=== PATIENT | female | born 1995 | race African-American/Black ===

== ENCOUNTER 2018-06-17 12:04 | Inpatient (IN) ==
[2018-06-17] MEDS ORDERED: SODIUM CHLORIDE 0.9% 1000ML 2,000 ML IV SCH (12:45)
[2018-06-17 12:48] LABS: Basophils # (auto) 0.03 K/uL (0-0.2); Basophils % (auto) 0.2 %; Eosinophils # (auto) 0.03 K/uL (0-0.5); Eosinophils % (auto) 0.2 %; Hemoglobin 12.7 g/dL (12.0-16.0); Immature Granulocytes # (auto) 0.08 K/uL (0.00-0.02); Immature Granulocytes % (auto) 0.5 %; Lymphocytes # (auto) 1.71 K/uL (1.2-3.4); Lymphocytes % (auto) 9.9 %; Mean Corpuscular Hgb Conc 33.4 g/dL (32-36); Mean Corpuscular Volume 83.9 fL (80-100); Monocytes # (auto) 2.52 K/uL (0.11-0.59); Monocytes % (auto) 14.6 %; Neutrophils % (auto) 74.6 %; Platelet Count 271 K/uL (130-400); RDW Standard Deviation 43.1 fL (36.4-46.3); Red Blood Count 4.53 M/uL (4.2-5.4); White Blood Count 17.27 K/uL (4.8-10.8)
[2018-06-17 12:59] LABS: INR 1.1 (0.9-1.1); Prothrombin Time 11.4 Seconds (9.0-12.0)
[2018-06-17 13:02] LABS: iSTAT Creatinine 0.7 mg/dl (0.6-1.3); iSTAT Hemoglobin 13.3 g/dl (12.0-16.0); iSTAT Ionized Calcium 1.11 mmol/l (1.12-1.32)
[2018-06-17 13:07] LABS: Alanine Aminotransferase 29 U/L (12-78); Albumin Level 3.4 gm/dl (3.4-5.0); Aspartate Aminotransferase 24 U/L (15-37); BUN Creatinine Ratio 7.8 (10-20); Blood Urea Nitrogen 6 mg/dl (7-18); Calcium 9.1 mg/dl (8.5-10.1); Carbon Dioxide 23 mmol/L (21-32); Chloride 104 mmol/L (98-107); Creatinine Clr Calc Pharmacy 129.2 ml/min; Est GFR (African American) 123.2; Est GFR (Non-African American) 106.3; Glucose 99 mg/dl (70-99); Potassium 2.9 mmol/L (3.5-5.1); Sodium 138 mmol/L (136-145)
[2018-06-17 13:12] LABS: Albumin Globulin Ratio 0.6 (0.9-2); Alkaline Phosphatase 74 U/L (45-117); Bilirubin,Total 0.5 mg/dl (0.2-1); Globulin 5.7 gm/dl (2.5-4.0); Total Protein 9.1 gm/dl (6.4-8.2); Troponin I < 0.015 ng/ml (0-0.045)
[2018-06-17] MEDS ORDERED: IOVERSOL 100ml IV PRN (13:15)
[2018-06-17] MEDS ORDERED: PIPERACILL/TAZOBAC CONSULT ACTIVE PRN (13:18)
[2018-06-17] MEDS ORDERED: PIPERACILLIN/TAZOBACTAM 3.375 GM/115 ML BAG IV STA (13:18)
--- NOTE | 2018-06-17 13:31 | CT Scan Report ---
CT OF THE CHEST WITH IV CONTRAST CLINICAL HISTORY: Chest mass. Fevers. COMPARISON STUDY: No previous studies for comparison. TECHNIQUE: Following the IV administration of 93 mL of Optiray-320, CT of the thorax was performed f rom the thoracic inlet to the lung bases. Images are reviewed in the axial, sagittal, and coronal arsh lonnie. IV contrast was administered without complication. A dose lowering technique was utilized adher ing to the principles of ALARA. CT DOSE: 368.29 mGycm FINDINGS: Thyroid: Imaged portions of the thyroid gland are normal in appearance. Thoracic aorta: The thoracic aorta is normal in course and caliber, noting standard 3-vessel arch katelin steph. No aneurysm or dissection is seen. Pulmonary vasculature: The pulmonary trunk is normal in caliber. There are no central filling defects identified to suggest pulmonary embolus. Note that this examination was not protocoled for the evalu ation of pulmonary emboli. HEART: The heart is normal in size and configuration, without pericardial effusion. Lungs and pleural spaces: There are no pleural effusions. There is a 8 cm left upper lobe pulmonary m ass containing multiple air-fluid levels. Given the patient's age and history of fever, this likely r epresents a necrotic pneumonia, with multifocal abscesses.. Atypical organisms must be considered in the differential given the appearance of this lesion. Pulmonary consultation for consideration of bro nchoscopy should be considered. Mediastinum: There is no mediastinal lymphadenopathy. Mariluz: There is left hilar adenopathy. Axilla: There is no evidence of pathologic axillary lymphadenopathy Upper abdomen: Partially visualized upper abdominal viscera is within normal limits. Skeletal structures: There are no lytic or blastic osseous lesions. IMPRESSION: 1. 8 cm left upper lobe pulmonary mass containing multiple air-fluid levels. There is associated left hilar adenopathy. Given the patient's age and history of fever, this likely represents a necrotic pn eumonia. Atypical organisms must be considered in the differential given the appearance of this lesio n. Pulmonary consultation for consideration of bronchoscopy should be considered. Electronically signed by: Marshall Palomo M.D. 06/17/2018 1:29 PM
[2018-06-17] MEDS ORDERED: VANCOMYCIN HCL 2,000 MG in SODIUM CHLORIDE 0.9% 500 ML IV ONE (13:44)
[2018-06-17] MEDS ORDERED: VANCOMYCIN CONSULT ACTIVE PRN (13:44)
--- NOTE | 2018-06-17 14:29 | History & Physical Report ---
Date of Service June 17, 2018 History of Present Illness Primary Care Provider: [facility] Allergies Allergy/AdvReac Type Severity Reaction Status Date / Time No Known Allergies Allergy Unverified 06/17/18 13:01 Home Medications Home Medications Medication Instructions Recorded Confirmed Type No Known Home Medications 06/17/18 06/17/18 History Past Med/Surg History Medical History No chronic diseases present Social History current occupational status: student Feels Safe at Home: Yes Smoking Status: Never smoker Physical Exam Vital Signs (Past 24 Hours): Last Vital Signs Temp 37.7 C H 06/17/18 12:22 Pulse 111 H 06/17/18 14:00 Resp 17 06/17/18 14:00 BP 135/82 06/17/18 14:00 Pulse Ox 97 06/17/18 14:00 Results & Data Diagnostic Findings CT chest . 8 cm left upper lobe pulmonary mass containing multiple air-fluid levels. There is associated left hilar adenopathy. Given the patient's age and history of fever, this likely represents a necrotic pneumonia. Atypical organisms must be considered in the differential given the appearance of this lesion. Pulmonary consultation for consideration of bronchoscopy should be considered.
--- NOTE | 2018-06-17 14:56 | History & Physical Report ---
Date of Service June 17, 2018 Assessment & Plan (1) Sepsis: (2) Pulmonary abscess: - Admit to med surg with tele - Isolation precautions, airborne - CT chest reviewed showing 8cm cavitary lesion with multiple air fluid levels in the MONIE close to multiple great vessels - concerning for infection vs inflammation vs malignancy. At this time cannot r/o TB. - Pulmonology consulted- Discussed with Dr. Butler at bedside - plan for bronch tomorrow morning and obtain cultures/pathology. NPO after midnight. More discussion regarding if surgical resection will be needed after bronchoscopy performed due to location of the lesion. - Check sputum culture, AFB, quantiferon gold for TB - Leukocytosis 17K upon admission, trend cbc - continue zosyn IV - pt has developed mild hives/itching from vancomycin so will stop this medication now and check MRSA swab to determine if needs for MRSA coverage. Vanc added to allergies. - Tmax 37.7, tylenol prn - Sats are adequate on room air, no respiratory distress. (3) DVT prophylaxis: - teds, ambulatory about the room. (4) Acute hypokalemia: - 2.9 upon admission, replaced - likley due to one episode of vomitting this morning. - Follow am prp History of Present Illness Primary Care Provider: [facility] This is a 23 yo F from [facility], with no significant PMHx who presents with acute onset of chills, fever, and worsening shortness of breath which has progressively worsened since Thursday. She reports some slight lightheadedness and dizziness. This morning she vomitted x 1 at 5:30a. She presents after having a routine CXR at [facility] where a cavitary lesion was found and was sent to the ER. 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 She reports lives in her own dorm. She denies sick contacts or recent travel. Pt found with leukocytosis 17K, and CT of the chest reveals a 8 cm cavitary lesions with multiple air fluid levels. Allergies Allergy/AdvReac Type Severity Reaction Status Date / Time vancomycin Allergy Mild Hives Unverified 06/17/18 15:16 Home Medications Home Medications Medication Instructions Recorded Confirmed Type No Known Home Medications 06/17/18 06/17/18 History Past Med/Surg History Medical History No chronic diseases present Social History current occupational status: student Feels Safe at Home: Yes Smoking Status: Never smoker Review of Systems Constitutional: No fever, sweats or chills Eyes: No diplopia, no worsening or blurred vision ENT: normal hearing, no trouble swallowing Respiratory: + dry cough, no sputum, + dyspnea on exertion Cardiovascular: No chest pain, tightness or palpitations Abdomen: No pain, nausea, vomiting, diarrhea or constipation Musculoskeletal: No joint pain, calf pain, swelling Neurologic: + generalized weakness, no numbness/tingling, or balance problems Psychiatric: No anxiety or depression Skin: No rash or itch Physical Exam Vital Signs (Past 24 Hours): Last Vital Signs Temp 37.7 C H 06/17/18 12:22 Pulse 111 H 06/17/18 14:00 Resp 17 06/17/18 14:00 BP 135/82 06/17/18 14:00 Pulse Ox 97 06/17/18 14:00 Physical Exam: General: awake, alert, no apparent distress Head: Normocephalic, atraumatic ENT: PERRL, EOMI, no pharyngeal exudate, mucous membranes moist Chest: Clear to auscultation, on room air, no adventitious breath sounds Cardiac: Regular rate and rhythm, no murmur, no JVD, normal peripheral pulses, good capillary refill Abdominal: NABS x 4 quadrants, soft, nontender to palpation, no rebound, guarding or tenderness Extremities: Normal inspection, no peripheral edema or erythema, calfs nontender to palpation Psych: Normal mood and affect Neuro: AAO x 3, strength intact bilaterally and related 5/5, no motor deficits, speech is clear, no peripheral sensory deficits Results & Data Diagnostic Findings CT OF THE CHEST WITH IV CONTRAST CLINICAL HISTORY: Chest mass. Fevers. COMPARISON STUDY: No previous studies for comparison. TECHNIQUE: Following the IV administration of 93 mL of Optiray-320, CT of the thorax was performed from the thoracic inlet to the lung bases. Images are reviewed in the axial, sagittal, and coronal planes. IV contrast was administered without complication. A dose lowering technique was utilized adhering to the principles of ALARA. CT DOSE: 368.29 mGycm FINDINGS: Thyroid: Imaged portions of the thyroid gland are normal in appearance. Thoracic aorta: The thoracic aorta is normal in course and caliber, noting standard 3-vessel arch anatomy. No aneurysm or dissection is seen. Pulmonary vasculature: The pulmonary trunk is normal in caliber. There are no central filling defects identified to suggest pulmonary embolus. Note that this examination was not protocoled for the evaluation of pulmonary emboli. HEART: The heart is normal in size and configuration, without pericardial effusion. Lungs and pleural spaces: There are no pleural effusions. There is a 8 cm left upper lobe pulmonary mass containing multiple air-fluid levels. Given the patient's age and history of fever, this likely represents a necrotic pneumonia, with multifocal abscesses.. Atypical organisms must be considered in the differential given the appearance of this lesion. Pulmonary consultation for consideration of bronchoscopy should be considered. Mediastinum: There is no mediastinal lymphadenopathy. Mariluz: There is left hilar adenopathy. Axilla: There is no evidence of pathologic axillary lymphadenopathy Upper abdomen: Partially visualized upper abdominal viscera is within normal limits. Skeletal structures: There are no lytic or blastic osseous lesions. IMPRESSION: 1. 8 cm left upper lobe pulmonary mass containing multiple air-fluid levels. There is associated left hilar adenopathy. Given the patient's age and history of fever, this likely represents a necrotic pneumonia. Atypical organisms must be considered in the differential given the appearance of this lesion. Pulmonary consultation for consideration of bronchoscopy should be considered. Code Status & VTE Plan Code Status Full (1) Pulmonary abscess Laterality: left Lung location: upper lobe of lung Pulmonary abscess pneumonia presence: with pneumonia Qualified Code(s): J85.1 - Abscess of lung with pneumonia (2) Sepsis Sepsis type: sepsis due to unspecified organism Qualified Code(s): A41.9 - Sepsis, unspecified organism
[2018-06-17] MEDS ORDERED: POTASSIUM CHLORIDE 20 MEQ TABCR PO STA (14:58)
--- NOTE | 2018-06-17 14:58 | Emergency Department Note ---
Entered by Fabi Little acting as a scribe for History of Present Illness General Chief complaint: Fever Stated complaint: FEVER CHILLS COUGH [facility] SENT OVERQ Source: patient History of Present Illness Provider complaint: shortness of breath Onset (ago): day(s) 2 Location: chest Pain Consistency: + other (persistent) Quality: + other (shortness of breath) Associated symptoms: + cough, + fever/chills and + other (Denies: pain/burning with urination, runny nose.) The patient is a 23 year old female who presents to the Emergency Room with complaints of persistent shortness of breath beginning 2 days ago. The patient was referred to the ED from [facility], where she had a fever of 103F and a chest X-ray that indicated a questionable mass. She notes she has had fevers and chills beginning 4 days ago. The patient reports a productive cough, and states her phlegm has been both clear and yellow. She denies pain/burning with urination or runny nose. The patient states her last menstrual period began yesterday, and there is no chance she is . She denies history of TB, and notes she moved to the from [facility] 7 years ago. Home Medications Home Medications Medication Instructions Recorded Confirmed Type No Known Home Medications 06/17/18 06/17/18 History Allergies Allergy/AdvReac Type Severity Reaction Status Date / Time No Known Allergies Allergy Unverified 06/17/18 13:01 Past Med/Surg History Medical History No chronic diseases present Social History current occupational status: student Feels Safe at Home: Yes Smoking Status: Never smoker Review of Systems See HPI for pertinent positives & negatives. and A total of 10 systems reviewed and were otherwise negative Physical Exam Vital Signs Vital Signs - 24 hr 06/17/18 12:22 06/17/18 13:03 06/17/18 13:17 Temperature 37.7 C H Temperature Source Oral Sepsis Recent Fever Within 48 Hours No Sepsis New/Unexplained Change in Mental Status No Sepsis Action Taken by Nursing No Action Required Pulse Rate 112 H 99 H Pulse Rate [Apical] 107 H Pulse Rate from SpO2 Sensor Respiratory Rate 20 19 13 Respiratory Depth Normal Blood Pressure 108/70 115/77 Blood Pressure [Left Arm] 116/79 Blood Pressure Mean 82 89 Blood Pressure Mean [Left Arm] 91 Pulse Oximetry 98 100 Oxygen Delivery Method Room Air Room Air 06/17/18 13:30 06/17/18 14:00 Temperature Temperature Source Sepsis Recent Fever Within 48 Hours Sepsis New/Unexplained Change in Mental Status Sepsis Action Taken by Nursing Pulse Rate 101 H 111 H Pulse Rate [Apical] Pulse Rate from SpO2 Sensor 102 H 113 H Respiratory Rate 12 17 Respiratory Depth Blood Pressure 135/82 Blood Pressure [Left Arm] Blood Pressure Mean 99 Blood Pressure Mean [Left Arm] Pulse Oximetry 98 97 Oxygen Delivery Method Room Air Room Air GENERAL: Sitting up in bed, alert, well appearing, well nourished, no distress, non-toxic EYE EXAM: normal conjunctiva. OROPHARYNX: no exudate, no erythema, lips, buccal mucosa, and tongue normal and mucous membranes are moist NECK: supple, no nuchal rigidity, no adenopathy, non-tender LUNGS: Clear to auscultation. Normal chest wall mechanics HEART: Tachycardic. no murmurs, S1 normal and S2 normal ABDOMEN: abdomen soft, non-tender, normo-active bowel, sounds, no masses, no rebound or guarding. BACK: Back is symmetrical on inspection and there is no deformity, no midline tenderness, no CVA tenderness. SKIN: no rashes and no bruising UPPER EXTREMITIES: upper extremities are grossly normal. LOWER EXTREMITIES: No pitting edema. NEURO EXAM: Normal sensorium, cranial nerves II-XII grossly intact, normal speech, no gross weakness of arms, no gross weakness of legs. Course ED COURSE: Vital signs were reviewed and showed tachycardia. The patients medical record was reviewed The above diagnostic studies were performed and reviewed. ED treatments and interventions as stated above. 1224: The patient was evaluated in room A4. A complete history and physical examination was performed. 1344: I reviewed the patient's case with Dr. Butler, [facility] clam dredger. He will evaluate the patient. 1405: Discussed the case again with Dr. Butler, [facility] clam dredger. 1415: I reviewed the patient's case with Meredith Metzger PA-C, [facility] hospitalist. She will evaluate the patient for further management. 1417: Upon reevaluation, the patient is resting. I discussed my findings with the patient and she understands and agrees with the treatment plan. Based on the patients age, coexisting illnesses, exam and lab findings the decision to treat as an inpatient was made. The patient remained stable while under my care. The patient will be evaluated for further management. Consultations Consultation #1: Dr. Butler, [facility] clam dredger Time: 13:44 Consultation #2: Meredith Metzger PA-C, [facility] hospitalist. Time: 14:15 Administered Medications Vancomycin HCl 2,000 mg/ (Sodium Chloride) 540 mls @ 200 mls/hr IV NOW ONE Stop: 06/17/18 16:25 Last Admin: 06/17/18 14:17 Dose: 200 mls/hr Documented by: [id number] Ioversol (Optiray 320 100ml) 93 ml IV ONCE PRN PRN Reason: Interaction Checking Stop: 06/21/18 13:14 Last Admin: 06/17/18 13:15 Dose: 93 ml Documented by: [id number] Discontinued Medications Sodium Chloride (Nss 1000ml) 2,000 mls @ 999 mls/hr IV .Q2H1M [place] Stop: 06/17/18 14:45 Last Admin: 06/17/18 12:59 Dose: 999 mls/hr Documented by: [id number] Piperacillin Sod/Tazobactam Sod (Zosyn) 3.375 gm in 115 mls @ 230 mls/hr IV NOW STA Stop: 06/17/18 13:47 Last Infusion: 06/17/18 14:09 Dose: 0 mls/hr Documented by: [id number] Admin: 06/17/18 13:39 Dose: 230 mls/hr Documented by: [id number] Medical Decision Making Differential Diagnosis Etiologies such as infections, reactive airway disease, COPD, pneumonia, pleural effusion, pulmonary edema, ARDS, pneumothorax, CHF, cardiac ischemia, cardiac tamponade, dysrhythmia, anemia, pulmonary embolism, musculoskeletal, gastrointestinal process, as well as others were entertained. Medical Records Attestation: I reviewed the patient's medical records. Home Medications Current Medication List: was personally reviewed by me Laboratory Data Attestation: I reviewed the patient's lab results. Result diagrams: 06/17/18 12:33 06/17/18 12:33 Lab Results 06/17/18 06/17/18 06/17/18 Range/Units 12:33 12:33 12:37 WBC 17.27 H (4.8-10.8) K/uL RBC 4.53 (4.2-5.4) M/uL Hgb 12.7 (12.0-16.0) g/dL POC Hgb (12.0-16.0) g/dl Hct 38.0 (37-47) % POC Hct (37-47) % MCV 83.9 (80-100) fL MCH 28.0 (25-34) pg MCHC 33.4 (32-36) g/dL RDW Std Deviation 43.1 (36.4-46.3) fL RDW Coeff of Christine 14.0 (11.5-14.5) % Plt Count 271 (130-400) K/uL MPV 10.0 (7.4-10.4) fL Immature Gran % (Auto) 0.5 % Neut % (Auto) 74.6 % Lymph % (Auto) 9.9 % [place] % (Auto) 14.6 % Eos % (Auto) 0.2 % Baso % (Auto) 0.2 % Immature Gran # (Auto) 0.08 H (0.00-0.02) K/uL Neut # (Auto) 12.90 H (1.4-6.5) K/uL Lymph # (Auto) 1.71 (1.2-3.4) K/uL [place] # (Auto) 2.52 H (0.11-0.59) K/uL Eos # (Auto) 0.03 (0-0.5) K/uL Baso # (Auto) 0.03 (0-0.2) K/uL PT 11.4 (9.0-12.0) Seconds INR 1.1 (0.9-1.1) POC Sodium (135-144) mEq/L Sodium 138 (136-145) mmol/L POC Potassium (3.3-5.0) mEq/L Potassium 2.9 L (3.5-5.1) mmol/L POC Chloride (101-112) mEq/L Chloride 104 (98-107) mmol/L Carbon Dioxide 23 (21-32) mmol/L POC Total CO2 (24-31) mEq/l Anion Gap 10.0 (3-11) POC Anion Gap (16-25) mmol/L POC BUN (7-18) mg/dl BUN 6 L (7-18) mg/dl Creatinine 0.79 (0.6-1.2) mg/dl POC Creatinine (0.6-1.3) mg/dl Est Cr Clr Drug Dosing 129.2 ml/min Est GFR ( Amer) 123.2 Est GFR (Non-Af Amer) 106.3 BUN/Creatinine Ratio 7.8 L (10-20) Glucose 99 (70-99) mg/dl POC Glucose (other) (70-99) mg/dl Calcium 9.1 (8.5-10.1) mg/dl POC Ioniz Calcium Jeff (1.12-1.32) mmol/l Total Bilirubin 0.5 (0.2-1) mg/dl AST 24 (15-37) U/L ALT 29 (12-78) U/L Alkaline Phosphatase 74 (45-117) U/L Troponin I < 0.015 (0-0.045) ng/ml Total Protein 9.1 H (6.4-8.2) gm/dl Albumin 3.4 (3.4-5.0) gm/dl Globulin 5.7 H (2.5-4.0) gm/dl Albumin/Globulin Ratio 0.6 L (0.9-2) Lipase 134 (73-393) U/L Influenza Type A Ag (Neg) Influenza Type B Ag (Neg) 06/17/18 06/17/18 Range/Units 12:48 12:55 WBC (4.8-10.8) K/uL RBC (4.2-5.4) M/uL Hgb (12.0-16.0) g/dL POC Hgb 13.3 (12.0-16.0) g/dl Hct (37-47) % POC Hct 39 (37-47) % MCV (80-100) fL MCH (25-34) pg MCHC (32-36) g/dL RDW Std Deviation (36.4-46.3) fL RDW Coeff of Christine (11.5-14.5) % Plt Count (130-400) K/uL MPV (7.4-10.4) fL Immature Gran % (Auto) % Neut % (Auto) % Lymph % (Auto) % [place] % (Auto) % Eos % (Auto) % Baso % (Auto) % Immature Gran # (Auto) (0.00-0.02) K/uL Neut # (Auto) (1.4-6.5) K/uL Lymph # (Auto) (1.2-3.4) K/uL [place] # (Auto) (0.11-0.59) K/uL Eos # (Auto) (0-0.5) K/uL Baso # (Auto) (0-0.2) K/uL PT (9.0-12.0) Seconds INR (0.9-1.1) POC Sodium 139 (135-144) mEq/L Sodium (136-145) mmol/L POC Potassium 3.0 L (3.3-5.0) mEq/L Potassium (3.5-5.1) mmol/L POC Chloride 101 (101-112) mEq/L Chloride (98-107) mmol/L Carbon Dioxide (21-32) mmol/L POC Total CO2 24 (24-31) mEq/l Anion Gap (3-11) POC Anion Gap 17.0 (16-25) mmol/L POC BUN 4 L (7-18) mg/dl BUN (7-18) mg/dl Creatinine (0.6-1.2) mg/dl POC Creatinine 0.7 (0.6-1.3) mg/dl Est Cr Clr Drug Dosing ml/min Est GFR ( Amer) Est GFR (Non-Af Amer) BUN/Creatinine Ratio (10-20) Glucose (70-99) mg/dl POC Glucose (other) 104 H (70-99) mg/dl Calcium (8.5-10.1) mg/dl POC Ioniz Calcium Jeff 1.11 L (1.12-1.32) mmol/l Total Bilirubin (0.2-1) mg/dl AST (15-37) U/L ALT (12-78) U/L Alkaline Phosphatase (45-117) U/L Troponin I (0-0.045) ng/ml Total Protein (6.4-8.2) gm/dl Albumin (3.4-5.0) gm/dl Globulin (2.5-4.0) gm/dl Albumin/Globulin Ratio (0.9-2) Lipase (73-393) U/L Influenza Type A Ag Neg for Influ A (Neg) Influenza Type B Ag Neg for Influ B (Neg) Imaging Data Radiologist's Impression: Radiology results as stated below per my review and the radiologist's interpretation: CT OF THE CHEST WITH IV CONTRAST CLINICAL HISTORY: Chest mass. Fevers. COMPARISON STUDY: No previous studies for comparison. TECHNIQUE: Following the IV administration of 93 mL of Optiray-320, CT of the thorax was performed from the thoracic inlet to the lung bases. Images are reviewed in the axial, sagittal, and coronal planes. IV contrast was administered without complication. A dose lowering technique was utilized adhering to the principles of ALARA. CT DOSE: 368.29 mGycm FINDINGS: Thyroid: Imaged portions of the thyroid gland are normal in appearance. Thoracic aorta: The thoracic aorta is normal in course and caliber, noting standard 3-vessel arch anatomy. No aneurysm or dissection is seen. Pulmonary vasculature: The pulmonary trunk is normal in caliber. There are no central filling defects identified to suggest pulmonary embolus. Note that this examination was not protocoled for the evaluation of pulmonary emboli. HEART: The heart is normal in size and configuration, without pericardial effusion. Lungs and pleural spaces: There are no pleural effusions. There is a 8 cm left upper lobe pulmonary mass containing multiple air-fluid levels. Given the patient's age and history of fever, this likely represents a necrotic pneumonia, with multifocal abscesses.. Atypical organisms must be considered in the di fferential given the appearance of this lesion. Pulmonary consultation for consideration of bronchoscopy should be considered. Mediastinum: There is no mediastinal lymphadenopathy. Mariluz: There is left hilar adenopathy. Axilla: There is no evidence of pathologic axillary lymphadenopathy Upper abdomen: Partially visualized upper abdominal viscera is within normal limits. Skeletal structures: There are no lytic or blastic osseous lesions. IMPRESSION: 1. 8 cm left upper lobe pulmonary mass containing multiple air-fluid levels. There is associated left hilar adenopathy. Given the patient's age and history of fever, this likely represents a necrotic pneumonia. Atypical organisms must be considered in the differential given the appearance of this lesion. Pulmonary consultation for consideration of bronchoscopy should be considered. Electronically signed by: Marshall Palomo M.D. 06/17/2018 1:29 PM Blood Pressure Blood Pressure Findings: Normal blood pressure Blood Pressure Disposition: did not require urgent referral MDM Narrative Patient is a 21-year-old female who presents the ER for fevers associated with productive cough. Upon presentation she is found to be tachycardic. She has been living in the [place] for the past 7 years but prior to this came from [facility]. Patient was referred in as she had an outpatient chest x-ray with a questionable mass. Labs show a leukocytosis of 17,000. INR was unremarkable. BMP with mild hypokalemia. Bilirubin LFTs were unremarkable. Lipase was normal. Influenza was negative. CT of the chest shows air-fluid levels left upper lobe suggestive of a lung abscess. Discussed with pulmonology. Patient was given IV Zosyn and IV vancomycin. She was given IV fluids. She was updated bedside as well as her friend. Patient was admitted to the hospital for further workup. She was also given oral potassium supplement. Impression & Plan Sepsis, Pulmonary abscess, Acute hypokalemia Discharge Plan Visit Data Chief Complaint: Fever Stated Complaint: FEVER CHILLS COUGH [facility] SENT OVERQ ED Provider: Alban Fisher Discharge Problem: Sepsis, Pulmonary abscess, Acute hypokalemia Patient Disposition: Being Evaluated by Hospitalist Forms Stand Alone Forms: My [facility] Prescriptions Prescriptions: No Action No Known Home Medications RF: 0 Referrals Referrals: [facility] [Primary Care Provider] - The scribe's documentation has been prepared under my direction and personally reviewed by me in its entirety. I confirm that the note above accurately reflects all work, treatment, procedures, and medical decision making performed by me.
--- NOTE | 2018-06-17 16:50 | Anesthesiology Consultation ---
Date of Service June 17, 2018 Assessment & Plan Chart Review Chart Review: Pending: Refer to Additional Notes / Consult section and Patient NOT seen in Pre Admission Testing Pt is hypokalemic with K of 2.9. Pt will get K repletion prior to procedure per hospitalist team and will need to have K recheck DOS Consults Requested none History Surgery Operation Date: 06/18/18 08:35 Proposed Procedures p Navigational Bronchoscopy - Ludwig Maddox MD, FACS Height/Weight Height: 1.75 m Weight: 83.9 kg Allergies Allergy/AdvReac Type Severity Reaction Status Date / Time vancomycin Allergy Mild Hives Unverified 06/17/18 15:16 Medications Home Medications Medication Instructions Recorded Confirmed Last Taken No Known Home Medications 06/17/18 06/17/18 Unknown Active Medications Generic Name Dose Route Start Last Admin Trade Name Freq PRN Reason Stop Dose Admin Ioversol 93 ml 06/17/18 13:15 06/17/18 13:15 Optiray 320 100ml IV 06/21/18 13:14 93 ml ONCE PRN Administration Interaction Checking Past Medical History Medical History Sepsis (Acute) Pulmonary abscess (Acute) No chronic diseases present Social History Smoking Status: Never smoker Physical Exam Vital Signs Last Vital Signs Temp 36.9 C 06/17/18 15:38 Pulse 102 H 06/17/18 16:00 Resp 16 06/17/18 16:00 BP 117/87 06/17/18 16:00 Pulse Ox 96 06/17/18 16:00 Testing Other Testing Chest CT 06/17/18 FINDINGS: Thyroid: Imaged portions of the thyroid gland are normal in appearance. Thoracic aorta: The thoracic aorta is normal in course and caliber, noting standard 3-vessel arch anatomy. No aneurysm or dissection is seen. Pulmonary vasculature: The pulmonary trunk is normal in caliber. There are no central filling defects identified to suggest pulmonary embolus. Note that this examination was not protocoled for the evaluation of pulmonary emboli. HEART: The heart is normal in size and configuration, without pericardial effusion. Lungs and pleural spaces: There are no pleural effusions. There is a 8 cm left upper lobe pulmonary mass containing multiple air-fluid levels. Given the patient's age and history of fever, this likely represents a necrotic pneumonia, with multifocal abscesses.. Atypical organisms must be considered in the differential given the appearance of this lesion. Pulmonary consultation for consideration of bronchoscopy should be considered. Mediastinum: There is no mediastinal lymphadenopathy. Mariluz: There is left hilar adenopathy. Axilla: There is no evidence of pathologic axillary lymphadenopathy Upper abdomen: Partially visualized upper abdominal viscera is within normal limits. Skeletal structures: There are no lytic or blastic osseous lesions. IMPRESSION: 1. 8 cm left upper lobe pulmonary mass containing multiple air-fluid levels. There is associated left hilar adenopathy. Given the patient's age and history of fever, this likely represents a necrotic pneumonia. Atypical organisms must b e considered in the differential given the appearance of this lesion. Pulmonary consultation for consideration of bronchoscopy should be considered Laboratory Results 06/17/18 12:33 06/17/18 12:33 PT 11.4 Seconds (9.0-12.0) 06/17/18 12:37 INR 1.1 (0.9-1.1) 06/17/18 12:37 06/17/18 12:48 POC Glucose (other) 104 H
[2018-06-17] MEDS ORDERED: ONDANSETRON INJ 2 MG/ML 2 ML VIAL IV PRN (16:55)
[2018-06-17] MEDS: PIPERACILLIN/TAZOBACTAM 3.375 GM in DEXTROSE 5% 100 ML IV SCH (18:12)
[2018-06-17 18:41] LABS: Immunoglobulin M 69.5 mg/dl (40-230)
[2018-06-17] MEDS: ACETAMINOPHEN 325 MG TAB PO PRN (21:58)
--- NOTE | 2018-06-18 00:54 | Consultation Report ---
DATE OF CONSULTATION: 06/17/2018 PULMONARY MEDICINE CONSULTATION TIME: 1500 hours. REASON FOR CONSULTATION: Cavitary process, left upper lobe. 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 The patient is a nonsmoker and has been in excellent health until 5 days prior to admission on Thursday, she developed rigors and chills and eventually some left anterior chest discomfort that was vague in nature. She has been producing some sputum that appears purulent without hemoptysis. She has experienced rigors and chills, but did not record her temperature elevation as she does not have a thermometer. She has not been chronically ill, but has lost maybe a few pounds in the last week with poor appetite. She denies frequent bouts of pneumonia, any known tuberculosis exposure. She has received BCG vaccination she states on 2 occasions. No known TB exposure. She is from [facility], but she lived in the [facility] in [facility] attending boarding school when she was younger. She states she was hospitalized at age 4-6 multiple times for "asthma," and although presumed she had a chest x-ray at some point, no one ever told her or her family that there were any abnormalities or congenital issues. She outgrew the asthma and from all that I can tell, she participated in multiple sports growing up without difficulties with dyspnea, etc. She has admitted to some dyspnea with exertion over the past week. No other significant travel history or exposure noted. She felt ill today and a chest x-ray was done at [facility] revealing cavitary lesion in the left upper lobe when was sent to the ER and seen by Dr. Alban Fisher. Her white count was 17,[address] scan of the chest showed an 8-cm left upper lobe pulmonary mass containing multiple air fluid levels associated with left hilar adenopathy suspicious for a necrotic pneumonia versus abscess versus a tuberculous process. For details of past medical history, medications, family and social history, I refer you to current and past record. FAMILY HISTORY: She is an only child. She is unaware of where her father is currently but wishes me to communicate with her mother back in [facility]. There is no family history to her knowledge of respiratory illness or asthma. ALLERGIES: No known allergies prior to this hospitalization. REVIEW OF SYSTEMS: The rest of her review of systems is noncontributory. PHYSICAL EXAMINATION: GENERAL: Reveals a well-developed black female in no obvious distress, wearing a protective respirator. VITAL SIGNS: Her blood pressure is 135/82, pulse 111 and regular, respiratory rate 17, temperature 37.7, O2 sat 97% on room air. SKIN: Warm and dry. HEENT: Atraumatic, normocephalic, PERRLA, EOMI. Conjunctivae pale. Sclerae nonicteric. Fundi poorly visualized. Dentition excellent. NECK: Neck veins are not distended at 45 degrees. No lymphadenopathy in the supra or infraclavicular areas. LUNGS: Distant P and A. CARDIAC: Regular rhythm. I do not appreciate a gallop. ABDOMEN: Soft, scaphoid. No evidence of hepatosplenomegaly. EXTREMITIES: No pedal edema, clubbing, or cyanosis. NEUROLOGIC: Intact. No lateralizing signs. IMAGING DATA: CT scan as noted. LABORATORY DATA: Other laboratory data, blood cultures are pending. White count 17,000, H and H 12.7 and 38, platelet count 271,000. Preponderance of polymorphonuclear leukocytes and a leftward shift noted. Serologies negative for influenza A and B, PCR negative. The rest of the chemistries, potassium 2.9, BUN and creatinine within normal limits. ASSESSMENT AND PLAN: A 23-year-old [place] black female with multi-cavitary necrotic-appearing mass and left hilar adenopathy associated with rigors and chills and leukocytosis. I had a lengthy discussion with the patient and her best friend was in the room. She would like me to discuss her case with her mother back in [facility]. She may very well have a congenital abnormality, especially as it pertains to the left upper lobe, something like congenital lobar emphysema or CPAM, although I suspect not. She appears to have a necrotic lung abscess, perhaps even with an underlying neoplasm. She has been started on IV vancomycin and Zosyn. Additional labs, QuantiFERON Gold serology, etc. will be sent for and patient will require bronchoscopic evaluation/EBN with lavage. I will ask thoracic surgery to see the patient in consultation as well. CHRISTINA
[2018-06-18] MEDS: PIPERACILLIN/TAZOBACTAM 3.375 GM in DEXTROSE 5% 100 ML IV SCH ×3 (01:47→17:52)
--- NOTE | 2018-06-18 02:22 | Consultation Report ---
DATE OF CONSULTATION: 06/17/2018 REASON FOR CONSULTATION: Evaluate for possible navigational bronchoscopy. HISTORY OF PRESENT ILLNESS: Heidi is a delightful 23-year-old who is from [facility], but attended high school in [place]. 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 She has never smoked cigarettes and does not use drugs. It should be noted that the patient received BCG vaccine twice in her life. She was in her usual state of health until 4 days ago when she developed rigors and chills. The following day, she developed much worsening symptoms, which was 3 days ago. She was fatigued. She had myalgias and arthralgias. She just continued on and she really did not have much of an appetite. She denies any symptoms. She did respond to antipyretics a bit; however, her symptoms persisted and she presented to [facility] where an x-ray was obtained and she was referred here to [facility] and has been admitted to the medical service. The patient has been evaluated by Dr. Devon Butler from pulmonary and we had a discussion after reviewing her case including her films. She did vomit this morning x1. She has not been in [facility] in [address] scan showed an 8-cm cavitary lesion with air-fluid levels. She has a leukocytosis, white count 17,000, and has been febrile. PAST MEDICAL HISTORY: 1. No history of cigarette smoking. 2. Cavitary lesion of left upper lobe. PAST SURGICAL HISTORY: None. FAMILY MEDICAL HISTORY: The patient is unaware of any family members with any infectious diseases or with tuberculosis exposure. REVIEW OF SYSTEMS: As stated, the patient has had a cough for 4 days and has produced some yellow sputum but no hemoptysis. She denies any GI or symptoms except for her episode of nausea this morning and anorexia. This has been going on for the last few days and she denies weight loss. She has had sweats. She has fevers and chills. She denies chest pain or palpitations. She has had no symptoms such as dysuria or hematuria. Her last menstrual cycle began yesterday. She has no neurologic events. She has had no skin rashes or lesions. She denies any palpitations. She has had no lymphadenopathy. PHYSICAL EXAMINATION: GENERAL: This is a 5-feet 9-inch, 185-pound female who wears glasses. HEENT: Her extraocular movements are intact. Pupils are equal, round, and reactive. Her sclerae are anicteric. She has no nasolabial flattening. I detect no icterus. Her tongue is midline. She has no oral mucosal lesions. NECK: I detect no supraclavicular, cervical, or axillary adenopathy. LUNGS: Clear. I really do not hear any rales or wheezing. HEART: She has a regular rate and rhythm of her heart at about 100 beats per minute. She has no rub. ABDOMEN: She has no costovertebral angle tenderness. Abdomen is soft, nontender. EXTREMITIES: She has excellent peripheral pulses. No peripheral edema. No joint effusions. NEUROLOGIC: She is completely intact. ASSESSMENT AND PLAN: An 8-cm cavitary lesion with air-fluid levels in the left upper lobe. She also has some hilar adenopathy. She really does not have any mediastinal adenopathy, however. I had a long talk with the patient at the bedside. We discussed fiberoptic bronchoscopy and navigational bronchoscopy or observation only with antibiotic coverage. I believe that a navigational bronchoscopy would be most helpful. I believe that we can get directly into this cavity and aspirate fluid, I think it is going to be better than a fiberoptic bronchoscopy; however, I think either one could be offered. After a long discussion, she has elected to proceed with a navigational bronchoscopy tomorrow under general anesthesia. We will have rapid onsite evaluation and hopefully have a preliminary answer tomorrow with a stat Gram stain. CHRISTINA
[2018-06-18 07:31] LABS: Hematocrit (blood only) 34.5 % (37-47); Hemoglobin 11.3 g/dL (12.0-16.0); Mean Corpuscular Hgb Conc 32.8 g/dL (32-36); Mean Corpuscular Volume 84.6 fL (80-100); Mean Platelet Volume 9.9 fL (7.4-10.4); Platelet Count 253 K/uL (130-400); RDW Coefficient of Variation 14.1 % (11.5-14.5); RDW Standard Deviation 43.7 fL (36.4-46.3); Red Blood Count 4.08 M/uL (4.2-5.4); White Blood Count 13.29 K/uL (4.8-10.8)
[2018-06-18 08:03] LABS: Albumin Level 2.8 gm/dl (3.4-5.0); BUN Creatinine Ratio 7.1 (10-20); Calcium 8.5 mg/dl (8.5-10.1); Creatinine Clr Calc Pharmacy 151.5 ml/min; Est GFR (African American) 143.9; Est GFR (Non-African American) 124.2; Potassium 3.2 mmol/L (3.5-5.1)
[2018-06-18 08:06] LABS: Albumin Globulin Ratio 0.6 (0.9-2); Bilirubin,Total 0.5 mg/dl (0.2-1); Globulin 4.9 gm/dl (2.5-4.0); Total Protein 7.7 gm/dl (6.4-8.2)
[2018-06-18] MEDS ORDERED: POTASSIUM CHLORIDE 20 MEQ TABCR PO STA (08:59)
[2018-06-18] MEDS: ACETAMINOPHEN 325 MG TAB PO PRN (10:00)
[2018-06-18 10:59] LABS: Pregnancy Test, Urine Negative (Negative)
--- NOTE | 2018-06-18 12:33 | Hospitalist Progress Note ---
Date of Service June 18, 2018 Assessment & Plan (1) Sepsis: - Leukocytosis, tachycardia, febrile at admission with pulmonary source. - HR remains elevated, ~100-110's; Leukocytosis improving. - Received 2L bolus in the ER; hold further IV fluids. - Treatment for pulmonary source as noted below. (2) Pulmonary abscess: - CT chest showed 8 cm cavitary lesion with multiple air fluid levels in the MONIE close to multiple great vessels -- infection vs. inflammation vs. malignancy. - Isolation precautions ordered due to concern for TB. - Pulm and CT surgery both consulted, plan for bronch today. - Sputum culture, AFB, quantiferon gold, aspergillus antigen and fungitell all pending. - Continue Zosyn IV for empiric coverage; holding MRSA coverage due to Vanc allergy, swab was negative. (3) Acute hypokalemia: - K level 3.2 -- ordered KCl 40 mEq PO. - Monitor levels qAM. (4) DVT prophylaxis: - Hold for pharmacologic ppx. Dispo: Med/surg with telemetry for pulm work up, IV abx. Supervising Physician Co-Signing Physician Notes Attending Attestation - Pt seen/examined, chart reviewed, care plan d/w CHAY Martínez. I agree w/ the simms components of her documentation. Pt to be transferred to [facility] sometime tonight. s/p bronch today. There is concern of CPAM based on her CT results and bronch. exam- heart -tachy, s1, s2 lungs - minimal crackles MONIE, otherwise cta b/l; no distress German Arguelles MD Subjective Pt. is doing well today. She complains of a non-productive cough. Denies chest pain, SOB, N/V, constipation. Plan for bronchoscopy this morning. Review of Systems All systems reviewed & are unremarkable except as noted in HPI & below Constitutional: no fever, no chills, no fatigue, no weakness and no anorexia Ear, Nose, Mouth, Throat: + nasal congestion (chronic ) Respiratory: + cough; no dyspnea, no dyspnea on exertion, no sputum production and no wheezing Cardiovascular: no chest pain, no palpitations and no edema Gastrointestinal: no abdominal pain, no nausea and no constipation Genitourinary (Female): no difficulty urinating Musculoskeletal: no joint pain Integumentary: no non-healing lesions Allergy / Immunological: no rash Physical Exam Vital Signs (Past 24 Hours): Last Vital Signs Temp 37.6 C H 06/18/18 11:51 Pulse 101 H 06/18/18 11:51 Resp 16 06/18/18 11:51 BP 100/65 06/18/18 11:51 Pulse Ox 98 06/18/18 11:51 Physical Exam: General: Resting comfortably in no apparent distress; A&OX3 HEENT: NC/AT; PERRLA with EOMI; Harvest conjunctiva, MMM. Neck: Supple and nontender Cardiac: RRR w/o murmurs, gallops or rubs Lungs: CTA bilaterally; No rhonchi, wheezing, or rales Abdomen: Bowel normoactive X 4; Nontender to palpation Extremities: Warm. No edema present Neuro: No focal weakness Skin: No rash Results & Data Laboratory Results 06/18/18 06/18/18 06/18/18 Range/Units 10:51 07:19 07:19 WBC 13.29 H (4.8-10.8) K/uL RBC 4.08 L (4.2-5.4) M/uL Hgb 11.3 L (12.0-16.0) g/dL POC Hgb (12.0-16.0) g/dl Hct 34.5 L (37-47) % POC Hct (37-47) % MCV 84.6 (80-100) fL MCH 27.7 (25-34) pg MCHC 32.8 (32-36) g/dL RDW Std Deviation 43.7 (36.4-46.3) fL RDW Coeff of Christine 14.1 (11.5-14.5) % Plt Count 253 (130-400) K/uL MPV 9.9 (7.4-10.4) fL Immature Gran % (Auto) % Neut % (Auto) % Lymph % (Auto) % Sullivan % (Auto) % Eos % (Auto) % Baso % (Auto) % Immature Gran # (Auto) (0.00-0.02) K/uL Neut # (Auto) (1.4-6.5) K/uL Lymph # (Auto) (1.2-3.4) K/uL Sullivan # (Auto) (0.11-0.59) K/uL Eos # (Auto) (0-0.5) K/uL Baso # (Auto) (0-0.2) K/uL PT (9.0-12.0) Seconds INR (0.9-1.1) POC Sodium (135-144) mEq/L Sodium 138 (136-145) mmol/L POC Potassium (3.3-5.0) mEq/L Potassium 3.2 L (3.5-5.1) mmol/L POC Chloride (101-112) mEq/L Chloride 107 (98-107) mmol/L Carbon Dioxide 24 (21-32) mmol/L POC Total CO2 (24-31) mEq/l Anion Gap 7.0 (3-11) POC Anion Gap (16-25) mmol/L POC BUN (7-18) mg/dl BUN 5 L (7-18) mg/dl Creatinine 0.68 (0.6-1.2) mg/dl POC Creatinine (0.6-1.3) mg/dl Est Cr Clr Drug Dosing 151.5 ml/min Est GFR ( Amer) 143.9 Est GFR (Non-Af Amer) 124.2 BUN/Creatinine Ratio 7.1 L (10-20) Glucose 93 (70-99) mg/dl POC Glucose (other) (70-99) mg/dl Calcium 8.5 (8.5-10.1) mg/dl POC Ioniz Calcium Jeff (1.12-1.32) mmol/l Total Bilirubin 0.5 (0.2-1) mg/dl AST 27 (15-37) U/L ALT 29 (12-78) U/L Alkaline Phosphatase 62 (45-117) U/L Troponin I (0-0.045) ng/ml Total Protein 7.7 (6.4-8.2) gm/dl Albumin 2.8 L (3.4-5.0) gm/dl Globulin 4.9 H (2.5-4.0) gm/dl Albumin/Globulin Ratio 0.6 L (0.9-2) Lipase (73-393) U/L Urine Test Negative (Negative) Nasal Screen MRSA (PCR) (Negative) IgG (700-1600) mg/dl IgA (70-400) mg/dl IgM (40-230) mg/dl IgE Influenza Type A Ag (Neg) Influenza Type B Ag (Neg) Aspergillus flavus Ab Aspergill fumigatus Ab A. galactomannan Ag A. galactomannan Ag Idx Aspergillus niger Ab TB Test (QFT) Gold Plus TB Test (QFT) Nil TB Test Mitogen - Nil TB Test Ag - Nil 1 TB Test Ag - Nil 2 Beta-(1,3)-D-Glucan B-(1,3)-D-Glucan Intrp 06/17/18 06/17/18 06/17/18 Range/Units 17:43 17:43 15:35 WBC (4.8-10.8) K/uL RBC (4.2-5.4) M/uL Hgb (12.0-16.0) g/dL POC Hgb (12.0-16.0) g/dl Hct (37-47) % POC Hct (37-47) % MCV (80-100) fL MCH (25-34) pg MCHC (32-36) g/dL RDW Std Deviation (36.4-46.3) fL RDW Coeff of Christine (11.5-14.5) % Plt Count (130-400) K/uL MPV (7.4-10.4) fL Immature Gran % (Auto) % Neut % (Auto) % Lymph % (Auto) % Sullivan % (Auto) % Eos % (Auto) % Baso % (Auto) % Immature Gran # (Auto) (0.00-0.02) K/uL Neut # (Auto) (1.4-6.5) K/uL Lymph # (Auto) (1.2-3.4) K/uL Sullivan # (Auto) (0.11-0.59) K/uL Eos # (Auto) (0-0.5) K/uL Baso # (Auto) (0-0.2) K/uL PT (9.0-12.0) Seconds INR (0.9-1.1) POC Sodium (135-144) mEq/L Sodium (136-145) mmol/L POC Potassium (3.3-5.0) mEq/L Potassium (3.5-5.1) mmol/L POC Chloride (101-112) mEq/L Chloride (98-107) mmol/L Carbon Dioxide (21-32) mmol/L POC Total CO2 (24-31) mEq/l Anion Gap (3-11) POC Anion Gap (16-25) mmol/L POC BUN (7-18) mg/dl BUN (7-18) mg/dl Creatinine (0.6-1.2) mg/dl POC Creatinine (0.6-1.3) mg/dl Est Cr Clr Drug Dosing ml/min Est GFR ( Amer) Est GFR (Non-Af Amer) BUN/Creatinine Ratio (10-20) Glucose (70-99) mg/dl POC Glucose (other) (70-99) mg/dl Calcium (8.5-10.1) mg/dl POC Ioniz Calcium Jeff (1.12-1.32) mmol/l Total Bilirubin (0.2-1) mg/dl AST (15-37) U/L ALT (12-78) U/L Alkaline Phosphatase (45-117) U/L Troponin I (0-0.045) ng/ml Total Protein (6.4-8.2) gm/dl Albumin (3.4-5.0) gm/dl Globulin (2.5-4.0) gm/dl Albumin/Globulin Ratio (0.9-2) Lipase (73-393) U/L Urine Test (Negative) Nasal Screen MRSA (PCR) Negative (Negative) IgG 1760.0 H (700-1600) mg/dl IgA 281.0 (70-400) mg/dl IgM 69.5 (40-230) mg/dl IgE Pending Influenza Type A Ag (Neg) Influenza Type B Ag (Neg) Aspergillus flavus Ab Pending Aspergill fumigatus Ab Pending A. galactomannan Ag Pending A. galactomannan Ag Idx Pending Aspergillus niger Ab Pending TB Test (QFT) Gold Plus Pending TB Test (QFT) Nil Pending TB Test Mitogen - Nil Pending TB Test Ag - Nil 1 Pending TB Test Ag - Nil 2 Pending Beta-(1,3)-D-Glucan Pending B-(1,3)-D-Glucan Intrp Pending 06/17/18 06/17/18 06/17/18 Range/Units 12:55 12:48 12:37 WBC (4.8-10.8) K/uL RBC (4.2-5.4) M/uL Hgb (12.0-16.0) g/dL POC Hgb 13.3 (12.0-16.0) g/dl Hct (37-47) % POC Hct 39 (37-47) % MCV (80-100) fL MCH (25-34) pg MCHC (32-36) g/dL RDW Std Deviation (36.4-46.3) fL RDW Coeff of Christine (11.5-14.5) % Plt Count (130-400) K/uL MPV (7.4-10.4) fL Immature Gran % (Auto) % Neut % (Auto) % Lymph % (Auto) % Sullivan % (Auto) % Eos % (Auto) % Baso % (Auto) % Immature Gran # (Auto) (0.00-0.02) K/uL Neut # (Auto) (1.4-6.5) K/uL Lymph # (Auto) (1.2-3.4) K/uL Sullivan # (Auto) (0.11-0.59) K/uL Eos # (Auto) (0-0.5) K/uL Baso # (Auto) (0-0.2) K/uL PT 11.4 (9.0-12.0) Seconds INR 1.1 (0.9-1.1) POC Sodium 139 (135-144) mEq/L Sodium (136-145) mmol/L POC Potassium 3.0 L (3.3-5.0) mEq/L Potassium (3.5-5.1) mmol/L POC Chloride 101 (101-112) mEq/L Chloride (98-107) mmol/L Carbon Dioxide (21-32) mmol/L POC Total CO2 24 (24-31) mEq/l Anion Gap (3-11) POC Anion Gap 17.0 (16-25) mmol/L POC BUN 4 L (7-18) mg/dl BUN (7-18) mg/dl Creatinine (0.6-1.2) mg/dl POC Creatinine 0.7 (0.6-1.3) mg/dl Est Cr Clr Drug Dosing ml/min Est GFR ( Amer) Est GFR (Non-Af Amer) BUN/Creatinine Ratio (10-20) Glucose (70-99) mg/dl POC Glucose (other) 104 H (70-99) mg/dl Calcium (8.5-10.1) mg/dl POC Ioniz Calcium Jeff 1.11 L (1.12-1.32) mmol/l Total Bilirubin (0.2-1) mg/dl AST (15-37) U/L ALT (12-78) U/L Alkaline Phosphatase (45-117) U/L Troponin I (0-0.045) ng/ml Total Protein (6.4-8.2) gm/dl Albumin (3.4-5.0) gm/dl Globulin (2.5-4.0) gm/dl Albumin/Globulin Ratio (0.9-2) Lipase (73-393) U/L Urine Test (Negative) Nasal Screen MRSA (PCR) (Negative) IgG (700-1600) mg/dl IgA (70-400) mg/dl IgM (40-230) mg/dl IgE Influenza Type A Ag Neg for Influ A (Neg) Influenza Type B Ag Neg for Influ B (Neg) Aspergillus flavus Ab Aspergill fumigatus Ab A. galactomannan Ag A. galactomannan Ag Idx Aspergillus niger Ab TB Test (QFT) Gold Plus TB Test (QFT) Nil TB Test Mitogen - Nil TB Test Ag - Nil 1 TB Test Ag - Nil 2 Beta-(1,3)-D-Glucan B-(1,3)-D-Glucan Intrp 06/17/18 06/17/18 Range/Units 12:33 12:33 WBC 17.27 H (4.8-10.8) K/uL RBC 4.53 (4.2-5.4) M/uL Hgb 12.7 (12.0-16.0) g/dL POC Hgb (12.0-16.0) g/dl Hct 38.0 (37-47) % POC Hct (37-47) % MCV 83.9 (80-100) fL MCH 28.0 (25-34) pg MCHC 33.4 (32-36) g/dL RDW Std Deviation 43.1 (36.4-46.3) fL RDW Coeff of Christine 14.0 (11.5-14.5) % Plt Count 271 (130-400) K/uL MPV 10.0 (7.4-10.4) fL Immature Gran % (Auto) 0.5 % Neut % (Auto) 74.6 % Lymph % (Auto) 9.9 % Sullivan % (Auto) 14.6 % Eos % (Auto) 0.2 % Baso % (Auto) 0.2 % Immature Gran # (Auto) 0.08 H (0.00-0.02) K/uL Neut # (Auto) 12.90 H (1.4-6.5) K/uL Lymph # (Auto) 1.71 (1.2-3.4) K/uL Sullivan # (Auto) 2.52 H (0.11-0.59) K/uL Eos # (Auto) 0.03 (0-0.5) K/uL Baso # (Auto) 0.03 (0-0.2) K/uL PT (9.0-12.0) Seconds INR (0.9-1.1) POC Sodium (135-144) mEq/L Sodium 138 (136-145) mmol/L POC Potassium (3.3-5.0) mEq/L Potassium 2.9 L (3.5-5.1) mmol/L POC Chloride (101-112) mEq/L Chloride 104 (98-107) mmol/L Carbon Dioxide 23 (21-32) mmol/L POC Total CO2 (24-31) mEq/l Anion Gap 10.0 (3-11) POC Anion Gap (16-25) mmol/L POC BUN (7-18) mg/dl BUN 6 L (7-18) mg/dl Creatinine 0.79 (0.6-1.2) mg/dl POC Creatinine (0.6-1.3) mg/dl Est Cr Clr Drug Dosing 129.2 ml/min Est GFR ( Amer) 123.2 Est GFR (Non-Af Amer) 106.3 BUN/Creatinine Ratio 7.8 L (10-20) Glucose 99 (70-99) mg/dl POC Glucose (other) (70-99) mg/dl Calcium 9.1 (8.5-10.1) mg/dl POC Ioniz Calcium Jeff (1.12-1.32) mmol/l Total Bilirubin 0.5 (0.2-1) mg/dl AST 24 (15-37) U/L ALT 29 (12-78) U/L Alkaline Phosphatase 74 (45-117) U/L Troponin I < 0.015 (0-0.045) ng/ml Total Protein 9.1 H (6.4-8.2) gm/dl Albumin 3.4 (3.4-5.0) gm/dl Globulin 5.7 H (2.5-4.0) gm/dl Albumin/Globulin Ratio 0.6 L (0.9-2) Lipase 134 (73-393) U/L Urine Test (Negative) Nasal Screen MRSA (PCR) (Negative) IgG (700-1600) mg/dl IgA (70-400) mg/dl IgM (40-230) mg/dl IgE Influenza Type A Ag (Neg) Influenza Type B Ag (Neg) Aspergillus flavus Ab Aspergill fumigatus Ab A. galactomannan Ag A. galactomannan Ag Idx Aspergillus niger Ab TB Test (QFT) Gold Plus TB Test (QFT) Nil TB Test Mitogen - Nil TB Test Ag - Nil 1 TB Test Ag - Nil 2 Beta-(1,3)-D-Glucan B-(1,3)-D-Glucan Intrp (1) Pulmonary abscess Laterality: left Lung location: upper lobe of lung Pulmonary abscess pneumonia presence: with pneumonia Qualified Code(s): J85.1 - Abscess of lung with pneumonia (2) Sepsis Sepsis type: sepsis due to unspecified organism Qualified Code(s): A41.9 - Sepsis, unspecified organism
[2018-06-18] MEDS ORDERED: LEVALBUTEROL HCL 1.25 MG/3 ML NEB NEB STA (12:58)
[2018-06-18] MEDS ORDERED: MIDAZOLAM HCL 1 MG/ML 2ML VIAL IV STA (12:58)
[2018-06-18] MEDS ORDERED: OXYMETAZOLINE 0.05% 30 ML BTL ONE (12:58)
[2018-06-18] MEDS ORDERED: fentaNYL citrate 100 MCG/2 ML VIAL IV ONE (12:58)
[2018-06-18] MEDS ORDERED: LIDOCAINE 4% INH SOLN 4 ML BTL INH STA (12:58)
[2018-06-18] MEDS ORDERED: LIDOCAINE HCL VISCOUS SOLN 2% 15 ML UDC MT ONE (12:58)
[2018-06-18] MEDS ORDERED: LIDOCAINE HCL 2% (LOCAL) INJ 50 ML VIAL INFIL STA (12:58)
--- NOTE | 2018-06-18 13:29 | Post Anesthesia Assessment ---
Date of Service June 18, 2018 Post Sedation Assessment Vital Signs Temp Pulse Pulse Pulse Resp BP BP 06/18/18 13:20 37.3 C 98 H 20 107/72 06/18/18 13:05 111 H 22 125/70 06/18/18 13:00 105 H 22 124/79 06/18/18 12:55 105 H 22 123/69 06/18/18 12:50 133 H 24 160/99 H 06/18/18 12:45 93 H 16 124/72 06/18/18 12:40 93 H 16 124/72 06/18/18 12:25 94 H 18 131/72 06/18/18 11:51 37.6 C H 101 H 16 100/65 06/18/18 07:27 38.1 C H 109 H 18 121/77 06/18/18 00:10 37.6 C H 122 H 12 111/71 06/18/18 00:00 119 H 06/17/18 17:46 102 H 06/17/18 17:12 36.7 C 111 H 18 124/80 06/17/18 16:00 102 H 16 117/87 06/17/18 15:38 36.9 C 101 H 12 116/81 06/17/18 14:31 109 H 19 06/17/18 14:30 106 H 19 112/72 06/17/18 14:00 111 H 17 135/82 06/17/18 13:30 101 H 12 Pulse Ox 06/18/18 13:20 100 06/18/18 13:05 100 06/18/18 13:00 100 06/18/18 12:55 100 06/18/18 12:50 100 06/18/18 12:45 100 06/18/18 12:40 100 06/18/18 12:25 98 06/18/18 11:51 98 06/18/18 07:27 98 06/18/18 00:10 97 06/18/18 00:00 06/17/18 17:46 06/17/18 17:12 100 06/17/18 16:00 96 06/17/18 15:38 97 06/17/18 14:31 100 06/17/18 14:30 99 06/17/18 14:00 97 06/17/18 13:30 98 Recovery Score Activity: Moves 4 extremities Respiration: Deep Breath/Cough Circulation: +/-20% PreAnes Value Consciousness: Fully Awake Oxygen Saturation: O2 needed for >90% Post Anesthesia Score: 9 Discharge Sedation Level of Care: Fast Track Phase II Post Sedation Plan On clinical assessment, the patient appears to have tolerated the sedation without complications. Patient is recovering as anticipated. Patient will continue to be monitored by nursing and may be discharged when sedation discharge criteria are met per below protocol. Upon Completions of procedure and additional 15 minutes continue every 5 minute vital signs and the P.A.R. score; then discharge to a Phase I or Fast Track to Phase II per the following guidelines: * Discharge Patient to appropriate Phase II area if PAR is 8 or greater or return to pre- procedure baseline. The post - procedure orders will be as directed. * If PAR score is less than 8 or not return to pre-procedure baseline then patient will follow Phase I monitoring till PAR is reached for Phase II. The Phase I may be done in procedure room or may call to secure a Phase I area. * If naloxone or flumazenil are used for reversal, hold in Phase I for continued monitoring from when last reversal dose was given for a minimum of 60 minutes or longer pending the nurse and/or physician discretion of patient condition before discharge to Phase II. Please call the Sedation Physician to re-evaluate and complete post-note for discharge to Phase II area. Do NOT discharge from procedure sedation or Phase 1 until post- sedation evaluation note is complete by procedure /sedation MD Sedation Discharge Instructions to be given to the patient at discharge to home.
--- NOTE | 2018-06-18 13:31 | Post Operative Brief Note ---
Immediate Post Op Note v1 Date of Surgery June 18, 2018 Pre & Post Diagnosis Operation Date: 06/18/18 12:00 Pre-Op Diagnosis: CAVITARY LUNG LESION Post-Op Diagnosis: CAVITARY LUNG LESION?CPAM Operation Date: 06/18/18 16:10 <No data on this case meets the specified criteria> Procedure Operation Date: 06/18/18 12:00 Actual Procedures p Bronchoscopy (Bilateral) - Devon Butler MD Operation Date: 06/18/18 16:10 <No data on this case meets the specified criteria> Surgeon Devon Butler MD Mutuel Clerk none Estimated Blood Loss 0 Findings Consistent with Post-Op Diagnosis Cavitary pneumonia Complications none Disposition Accompanied Patient To Recovery: No Overlapping Procedure I was present for: the critical portions of procedure. I was immediately available: during the entire case. Back up surgeon: was not required during procedure.
--- NOTE | 2018-06-18 17:31 | Discharge Summary ---
Date of Service June 18, 2018 Admission HPI Per Admitting Provider This is a 23 yo F from [facility] [place], with no significant PMHx who presents with acute onset of chills, fever, and worsening shortness of breath which has progressively worsened since Thursday. She reports some slight lightheadedness and dizziness. This morning she vomitted x 1 at 5:30a. She presents after having a routine CXR at [facility] where a cavitary lesion was found and was sent to the ER. 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 She reports lives in her own dorm. She denies sick contacts or recent travel. Pt found with leukocytosis 17K, and CT of the chest reveals a 8 cm cavitary lesions with multiple air fluid levels. Admission Exam Per Admitting Provider General: awake, alert, no apparent distress Head: Normocephalic, atraumatic ENT: PERRL, EOMI, no pharyngeal exudate, mucous membranes moist Chest: Clear to auscultation, on room air, no adventitious breath sounds Cardiac: Regular rate and rhythm, no murmur, no JVD, normal peripheral pulses, good capillary refill Abdominal: NABS x 4 quadrants, soft, nontender to palpation, no rebound, guarding or tenderness Extremities: Normal inspection, no peripheral edema or erythema, calfs nontender to palpation Psych: Normal mood and affect Neuro: AAO x 3, strength intact bilaterally and related 5/5, no motor deficits, speech is clear, no peripheral sensory deficits Principal Diagnosis Cavitary Lesion in the left upper lobe Discharge Exam General: Resting comfortably in no apparent distress; A&OX3 HEENT: NC/AT; PERRLA with EOMI; Cushing conjunctiva, MMM. Neck: Supple and nontender Cardiac: RRR w/o murmurs, gallops or rubs Lungs: CTA bilaterally; No rhonchi, wheezing, or rales Abdomen: Bowel normoactive X 4; Nontender to palpation Extremities: Warm. No edema present Neuro: No focal weakness Skin: No rash Discharge Data Allergies Allergy/AdvReac Type Severity Reaction Status Date / Time vancomycin Allergy Mild Hives Unverified 06/17/18 15:16 Consultations 1. [facility]. [facility] Procedures Performed Operation Date: 06/18/18 12:00 Actual Procedures Bronchoscopy (Bilateral) - Devon Butler MD Ordered Studies 06/17/18 12:31 CT chest w con Stat Hospital Course (1) Sepsis: Leukocytosis, tachycardia, febrile at admission with pulmonary source. HR remained elevated, leukocytosis was trending down. Received 2L bolus in the ER. (2) Pulmonary abscess: CT chest showed 8 cm cavitary lesion with multiple air fluid levels in the MONIE close to multiple great vessels -- infection vs. inflammation vs. malignancy. Isolation precautions ordered due to concern for TB. Pulm and CT surgery were both consulted. S/p bronchoscopy on 06/18, concern for congenital pulmonary airway malformation vs. other etiology. Sputum culture, AFB, quantife dorene gold, aspergillus antigen and fungitell are all pending. Zosyn was ordered for empiric coverage. Vancomycin was held due to allergy (hives). Will be transferred [place] [facility] [place] for further evaluation. (3) Acute hypokalemia: Potassium was replaced as needed. (4) DVT prophylaxis: SCDS; held Lovenox for procedure. Pt. was stable for discharge to [facility] via [place]LS on 06/18/18. Total Time Total Time Spent Total Time Spent (In Minutes): >30 minutes Total Time Includes: Examination of the Patient, Discharge Planning, Medication Reconciliation, Communication With Other Providers and Other Discharge Plan Discharge Items Patient Disposition: Transfer Acute Care Hospital Reason For Visit: CAVITARY LUNG LESION Discharge Diagnosis: Cavitary Lung Lesion Condition: Critical Discharge Goals: Therapeutic intervention Activity: As commented below Non-emergency contact: Primary Care Provider Call non-emergency contact if: you have any medication questions Follow-up/Referrals: [facility] [Primary Care Provider] - Diet: Regular Addtl Provider Instructions: 1. You will be transferred to [facility] for evaluation. Prescriptions: New acetaminophen [Mapap (acetaminophen)] 325 mg Tablet 650 mg PO Q4H PRN (Reason: pain (scale score 1-3)) 1 Days Qty: 1 RF: 0 piperacillin-tazobactam [Zosyn] 4.5 gram recon soln 4.5 gm IV Q8H 7 Days RF: 0 ondansetron HCl [Zofran] 4 mg tablet 4 mg PO Q8H 1 Days Qty: 3 RF: 0 No Action No Known Home Medications RF: 0 Stand-Alone Forms: [facility] Discharge Orders: Discharge Order (Routine); Ordered 06/18/18 Ordered By: Pebbles Martínez Admission Data Admit Date/Time: 06/17/18 14:51 Attending Provider: German Arguelles Admit Provider: Oumar Jacobs Primary Care Provider: [facility] Other Providers: Devon Butler ; Ludwig Maddox ; Oumar Jacobs Service: Telemetry Medical Other Pending Studies at Discharge: Yes Supervising Physician Co-Signing Physician Notes Attending Attestation & Discharge Note - Pt seen/examined, chart reviewed, discharge care plan d/w PA Pebbles Martínez. I agree w/ the simms components of her discharge summary. 23yo female, current [employer] student, who presented with sepsis 2nd to cavitary lesion in the left lung upper lobe. Placed on broad-spectrum IV antibiotic therapy and airborne precautions while aw aiting TB testing. Underwent bronchoscopy by Dr. Devon Butler. All bronch cultures are pending at time of discharge. There was concern that the patient has CPAM in addition to her infectious proces s and therefore she was transferred to [facility] for ongoing care. Discharge exam: gen - NAD, nontoxic, a/o x 3 mouth - MMM heart - tachy, s1, s2, no murmur lungs - minimal MONIE crackles, otherwise CTA b/l, no increased work of breathing abd - soft, NT, ND, BS+ ext - no edema German Arguelles MD
--- NOTE | 2018-06-18 20:28 | Progress Note ---
DATE: 06/18/2018 PULMONARY MEDICINE PROGRESS NOTE Chart reviewed and patient examined. ASSESSMENT AND SUBJECTIVE: The patient was seen post bronchoscopy. She is stable but has exhibited strong paroxysms of coughing. Bronchoalveolar lavage was done of left upper lobe respective segments and lingula orifice as well. No biopsies were attempted. ENB was not performed. I discussed with the patient the possibility of transferring her to a tertiary center like [facility] and will contact Dr. Rahul Beltran, chair of the thoracic department. I have consulted with Dr. Ludwig Maddox/thoracic medicine here at [facility] and reviewed the CT scan of the chest with multiple radiologists. It is my suspicion that the patient has a congenital abnormality, a congenital pulmonary airway malformation, possibly even congenital lobar emphysema, and has developed a significant infection with multiple air fluid levels and cavities involving the left upper lobe. Although it may be sparing the lingula, this whole 8-cm mass-like infiltrate/process is abutting the left hilum and spanning the major fissure. I strongly believe the patient will require a thoracotomy or thoracoscopy procedure with left upper lobe resection, possibly with a sparing segmentectomy, but I am concerned about its location and the adjacent nature to the mediastinum and left hilar area as well as involving left lower lobe as well. Therefore, I will be speaking with Dr. Rahul Beltran about possible transfer and consideration for surgical resection at some point in the near future. I have voiced my opinion to the patient and will be speaking with her mother in [facility] this evening as well.
[2018-06-19] MEDS: ACETAMINOPHEN 325 MG TAB PO PRN (00:19)
--- NOTE | 2018-06-19 00:57 | Operative Report ---
DATE OF OPERATION: 06/18/2018 TIME: 1200 hours. PROCEDURE: Fiberoptic bronchoscopy with BAL. INDICATIONS: Multiple cavitary process, left upper lobe ANESTHESIA PREOPERATIVELY: None. ANESTHESIA DURING PROCEDURE: IV Versed 7 mg, IV fentanyl 100 mcg, 20 mL 2% Xylocaine spray above and below the cords, 4% viscous Xylocaine intranasally. DESCRIPTION OF PROCEDURE: Moderate conscious sedation was begun at 12:40 and completed at 12:55. Fiberoptic bronchoscope was inserted into the right naris with moderate amount of difficulty and passed to the level of the true vocal cords. The cords appear to approximate normally with phonation without evidence of lesions or paralysis. The scope was then introduced into the trachea and right and left tracheobronchial tree. Right main stem bronchus was found to be free of endobronchial lesions. The right upper lobe at the apical posterior and anterior segments, bronchus intermedius, right middle lobe at the medial lateral segments, and all basilar segments of right lower lobe were found to be free of endobronchial lesions. The scope was then withdrawn to the willi, which was sharp and entered into the left mainstem bronchus. No endobronchial lesions were seen. At the level of the left upper lobe and lingula subdivision, on the medial wall of the left main stem bronchus, was a bronchial cleft noted. The left upper lobe, the apical-posterior and anterior segments, lingular subdivision with the superior and inferior segments and all basilar segments of left lower lobe were free of endobronchial lesions. The left upper lobe was then reexamined and a moderate degree of global inflammatory mucosal change was seen. The apical-posterior and anterior segments were copiously lavaged with normosol and the aspirate sent for appropriate studies. The lingula as well as left lower lobe were also lavaged with normosol and sent for appropriate studies, but the left upper lobe with all 3 segments were irrigated copiously. Severe paroxysms of coughing were elicited. No brushings or biopsies were attempted. The procedure was terminated. The patient was given a nebulizer treatment with Xopenex 1.25 mg, then transferred back to the medical floor, hemodynamically stable, no signs of respiratory compromise. The procedure was done in respiratory isolation in a negative pressure environment. I attest to the content of the Intraoperative Record and any orders documented therein. Any exception s are noted below.
[2018-06-19] MEDS: PIPERACILLIN/TAZOBACTAM 3.375 GM in DEXTROSE 5% 100 ML IV SCH (02:26)
[2018-06-19 05:42] LABS: Hemoglobin 11.4 g/dL (12.0-16.0); Mean Corpuscular Hgb Conc 32.6 g/dL (32-36); Mean Corpuscular Volume 84.5 fL (80-100); Platelet Count 283 K/uL (130-400); RDW Coefficient of Variation 14.2 % (11.5-14.5); RDW Standard Deviation 43.9 fL (36.4-46.3); Red Blood Count 4.14 M/uL (4.2-5.4); White Blood Count 9.48 K/uL (4.8-10.8)
[2018-06-19 06:03] LABS: Albumin Level 2.6 gm/dl (3.4-5.0); BUN Creatinine Ratio 7.3 (10-20); Calcium 8.5 mg/dl (8.5-10.1); Creatinine Clr Calc Pharmacy 153.8 ml/min; Est GFR (African American) 144.6; Est GFR (Non-African American) 124.8; Magnesium 2.1 mg/dl (1.8-2.4); Potassium 3.7 mmol/L (3.5-5.1)
[2018-06-19 06:06] LABS: Albumin Globulin Ratio 0.5 (0.9-2); Bilirubin,Total 0.4 mg/dl (0.2-1); Globulin 5.1 gm/dl (2.5-4.0); Total Protein 7.7 gm/dl (6.4-8.2)
[2018-06-23 15:03] LABS: Aspergillus Ag Index 0.07 (<0.50); Aspergillus Antigen, Serum Not Detected (Not Detected); Aspergillus Flavus Negative (Negative); Aspergillus Niger Negative (Negative); Immunoglobulin IgE 1033 KU/L (<115); Quantiferon Mitogen-NIL >10.00 IU/ML; Quantiferon NIL 0.01 IU/ML; Quantiferon TB Gold Plus NEGATIVE (NEGATIVE)
== END 2018-06-19 10:21 | disposition short-term general hospital (02) | DRG 871 ==
LOC: EDBD → ED 12:04 → SUATTDRO 14:51 → 2W 14:51
DX: Z88.1 Allergy status to other antibiotic agents; J85.2 Abscess of lung without pneumonia; E87.6 Hypokalemia; A41.9 Sepsis, unspecified organism